=== PATIENT | female | born 1960 | race Caucasian/White ===

== ENCOUNTER → 2021-10-19 | Outpatient (CLI) | payer BC, OTHER ==
[~2021-10-19] MED LIST: BAMLANIVIMAB (EUA) 700 MG, ETESEVIMAB (EUA) 1,400 MG in SODIUM CHLORIDE 0.9% 100 ML IVPB NR; SODIUM CHLORIDE 0.9% 50 ML IVPB NR; SODIUM CHLORIDE 0.9% 500 ML 500 ML in EMPTY BAG 1 BAG IV PRN
[2021-10-19 08:44] VITALS: RESP 18
[2021-10-19 09:12] VITALS: TEMP 97.4
[2021-10-19 10:12] VITALS: BP 128/86; PULSE 91
== END ==
LOC: PROCWHC3 07:57
PROVIDERS: ATTEND Family Medicine
DX: U07.1 COVID-19 (principal); E66.9 Obesity, unspecified; Z68.36 Body mass index [BMI] 36.0-36.9, adult
CPT/HCPCS: 96360; J3490; M0245